=== PATIENT | male | born 1945 | race Hispanic/Latino ===

== ENCOUNTER 2018-03-02 09:20 | Emergency (ER) | payer OTHER, MEDICARE ==
[2018-03-02 09:41] VITALS: BP 142/85
--- NOTE | 2018-03-02 10:04 | ED PDOC ---
HPI: Trauma/Fall - HPI Time Seen by Provider: 03/02/18 09:31 Chief Complaint (Nursing): Chest Pain History Per: Patient Onset/Duration Of Symptoms: Days (2) Injury Occurred (Timing): Days Ago: (2) Location Of Injury: Left: Chest Severity: Moderate Pain Scale Rating Of: 4 Additional Complaint(s): Tripped and fell 2 days ago and fell against steps injuring left lower ribs. Pain on movement and inspiration but denies SOB or abd pain. Seen at [facility] with rib xrays revealing possible fx ribs and possible effusion. Past Medical History Vital Signs: Last Vital Signs Temp 98.4 F 03/02/18 09:32 Pulse 77 03/02/18 09:32 Resp 16 03/02/18 09:32 BP 142/85 03/02/18 09:32 Pulse Ox 95 03/02/18 09:32 - Medical History PMH: Arthritis, Hypercholesterolemia - Family History Family History: States: Unknown Family Hx - Home Medications Home Medications: Ambulatory Orders Medication Instructions Recorded traMADol [Ultram] 50 mg PO Q8 #10 tab 03/02/18 - Allergies Allergies/Adverse Reactions: Allergies Allergy/AdvReac Type Severity Reaction Status Date / Time No Known Allergies Allergy Verified 03/02/18 09:32 Review of Systems Cardiovascular: Positive for: Chest Pain Respiratory: Positive for: Pleuritic Pain. Negative for: Shortness of Breath Gastrointestinal: Negative for: Abdominal Pain Neurological: Negative for: Confusion, Dizziness Physical Exam - Physical Exam Appears: Positive for: Non-toxic, No Acute Distress Skin: Positive for: Normal Color, Warm, DRY Neck: Positive for: Normal, Painless ROM Cardiovascular/Chest: Positive for: Regular Rate, Rhythm. Negative for: Chest Non Tender (Tenderness and ecchymosis left lower anterolateral ribs. No crunch or flail ) Respiratory: Positive for: CNT, Normal Breath Sounds Gastrointestinal/Abdominal: Positive for: Bowel Sounds, Soft. Negative for: Tenderness Neurologic/Psych: Positive for: Alert, Oriented. Negative for: Motor/Sensory Deficits - ECG O2 Sat by Pulse Oximetry: 95 (RA) Pulse Ox Interpretation: Normal Medical Decision Making Medical Decision Making: Time: 956 Plan: -- Chest CT w/o contrast Time:[address] w/o contrast Results: FINDINGS: LUNGS: No infiltrate. Centrilobular pulmonary emphysema, moderate. Bilateral lower lobe dependent atelectasis. Mild subpleural emphysematous change in both lower lobes. No pulmonary mass. MEDIASTINUM: Unremarkable thoracic aorta. No aneurysm. Normal heart size. Coronary arterial calcification. Main pulmonary artery unremarkable. No vascular congestion. No lymphadenopathy. Small hiatal hernia. PLEURA: No pleural fluid. No pneumothorax. BONES: No fracture. No destructive lesion. No rib fracture identified. UPPER ABDOMEN: 3 mm nonobstructing mid left renal calculus. OTHER FINDINGS: None. IMPRESSION: No evidence of rib fracture. No hemothorax/pneumothorax. Centrilobular pulmonary emphysema. Lower lobe subpleural emphysematous change. Small hiatal hernia. Nonobstructing 3 mm left renal calculus. Coronary arterial calcification. Scribe Attestation: Documented by Piedad Killian, acting as a scribe for Dr. Jae Aguilar. Provider Scribe Attestation: All medical record entries made by the Scribe were at my direction and personally dictated by me. I have reviewed the chart and agree that the record accurately reflects my personal performance of the history, physical exam, medical decision making, and the department course for this patient. I have also personally directed, reviewed, and agree with the discharge instructions and disposition. Disposition - Clinical Impression Clinical Impression: Rib contusion - Patient ED Disposition Is Patient to be Admitted: No - Disposition Referrals: [facility] [Outside] Disposition: Routine/Home Disposition Time: 11:58 Condition: FAIR Prescriptions: traMADol [Ultram] 50 mg PO Q8 #10 tab Instructions: Bruised Rib Forms: [facility] (Sami)
--- NOTE | 2018-03-02 11:43 | CT ---
PROCEDURE: CT Chest without contrast HISTORY: r/o left lower rib fxs with effusion COMPARISON: None. TECHNIQUE: Contiguous axial images were obtained through the chest without intravenous contrast enhancement. Sagittal and coronal reconstructions were performed. Radiation dose (DLP): 362.61 mGy-cm. This CT exam was performed using one or more of the following dose reduction techniques: Automated exposure control, adjustment of the mA and/or kV according to patient size, and/or use of iterative reconstruction technique. FINDINGS: LUNGS: No infiltrate. Centrilobular pulmonary emphysema, moderate. Bilateral lower lobe dependent atelectasis. Mild subpleural emphysematous change in both lower lobes. No pulmonary mass. MEDIASTINUM: Unremarkable thoracic aorta. No aneurysm. Normal heart size. Coronary arterial calcification. Main pulmonary artery unremarkable. No vascular congestion. No lymphadenopathy. Small hiatal hernia. PLEURA: No pleural fluid. No pneumothorax. BONES: No fracture. No destructive lesion. No rib fracture identified. UPPER ABDOMEN: 3 mm nonobstructing mid left renal calculus. OTHER FINDINGS: None. IMPRESSION: No evidence of rib fracture. No hemothorax/pneumothorax. Centrilobular pulmonary emphysema. Lower lobe subpleural emphysematous change. Small hiatal hernia. Nonobstructing 3 mm left renal calculus. Coronary arterial calcification.
[2018-03-02 12:03] VITALS: PULSE 78; RESP 14; TEMP 97.9; O2SAT 97
== END 2018-03-02 12:03 | disposition home or self-care (01) ==
LOC: H.ER 09:20
DX: S20.219A Contusion of unspecified front wall of thorax, initial encounter (principal); W01.0XXA Fall on same level from slipping, tripping and stumbling without subsequent striking against object, initial encounter; Y92.89 Other specified places as the place of occurrence of the external cause; E78.00 Pure hypercholesterolemia, unspecified; J43.9 Emphysema, unspecified; K44.9 Diaphragmatic hernia without obstruction or gangrene